=== PATIENT | female | born 1950 | race Caucasian/White ===

== ENCOUNTER 2016-09-08 06:27 | Day surgery (SDC) | payer OTHER ==
--- NOTE | 2016-09-04 09:09 | PREOPHP ---
DATE OF ADMISSION: 09/08/2016 HISTORY OF PRESENT ILLNESS: This 66-year-old patient is admitted for elective cataract extraction o f the left eye. The patient has had decreased vision for the past 4 years and 3 months ago underwen t cataract surgery of the right eye with good visual result. The patient denies prior history of ey e disease or injury. The patient does have a 10-year history of ubz-[id number]-[id number] diabetes christina itus. In addition, the patient is being treated for fibromyalgia, arthritis, and depression. CURRENT MEDICATIONS: Includes: 1. Cymbalta. 2. Metformin. 3. Nateglinide. 4. Alprazolam. 5. Benazepril. 6. Jardiance. 7. Pravastatin. 8. Omeprazole. 9. Aspirin (discontinued 1 week prior to surgery). 10. Bupropion. 11. Ventolin. 12. Spiriva. ALLERGIES: THE PATIENT IS ALLERGIC TO HUMULIN INSULIN. PHYSICAL EXAMINATION: The visual acuity with best correction is 20/40 in both eyes. Slit lamp exam ination reveals a posterior chamber intraocular lens in appropriate position in the right eye and a posterior subcapsular cataract in the left eye. Applanation tonometry is 20 mmHg. Examination of t he retina does not reveal the presence of any diabetic retinopathy. DIAGNOSIS: Cataract, left eye. PLAN: Cataract extraction with lens implant, left eye. The risks and alternatives to the surgery h ave been discussed with the patient as well as the hope for improvement of visual acuity leading to a greater ability to perform activities of daily living. The patient understands this and consents to the surgery. Dictated By: VINAY BADILLO/JITENDRA Conf#: [id number] DID#: [id number]
[2016-09-08] VITALS (8 sets, daily range): BP systolic 122–138; BP diastolic 60–77; PULSE 90–103; RESP 20–26; Ht 162.6 cm; Wt 124.0 kg
[~2016-09-08] VITALS: Ht 162.6 cm; Wt 124.0 kg
[~2016-09-08 06:27] MED LIST: ACAR25TA8 PO; ALBU18HF INHALATION; ALPR0.254 PO; ASPI81TA3 PO; BENA40TA41 PO; BUPR150T6 PO; DULO60CA6 PO; EMPA25TA PO; EXEN2VIA SQ; HYDR-902 PO; INSU100I31 SQ; METF500T4 PO; NATE120T PO; OMEP20CA16 PO; PRAV80TA27 PO; TIOT18CA INHALATION
[2016-09-08] MEDS ORDERED: DOCU250C58 PO (07:44)
[2016-09-08] MEDS ORDERED: CARBACHOL 0.01% 1.5 ML OPH INJ ONE (07:57)
[2016-09-08] MEDS ORDERED: CYCLOPENTOLATE/PHENYLEPH 2 ML OPH LEFT EYE SCH (08:00)
[2016-09-08] MEDS ORDERED: DICLOFENAC 0.1% 2.5 ML OPH OPER SCH (08:00)
[2016-09-08] MEDS ORDERED: TROPICAMIDE 1% 2 ML OPH OPER SCH (08:00)
[2016-09-08] MEDS ORDERED: CIPROFLOXACIN 0.3% 2.5 ML OPH OPER SCH (08:00)
--- NOTE | 2016-09-08 08:16 | HPN ---
Date/Time of Note Date/Time of Note DATE: 09/08/16 TIME: 08:16 Interval H&P Admission Note Pt. seen H&P reviewed: No system changes VINAY OLVERA MD Sep 08, 2016 08:16
[2016-09-08] MEDS ORDERED: LIDOCAINE 4% (MPF) 5 ML INJ ONE (09:07)
[2016-09-08] MEDS ORDERED: DEXAMETHASONE 4 MG/ML 1 ML INJ ONE (09:07)
[2016-09-08] MEDS ORDERED: HYALURONATE/CHONDROITIN 1ML OPH INJ ONE (09:07)
[2016-09-08] MEDS ORDERED: FENTAnyl 50 MCG/ML VIAL ONE (09:27)
[2016-09-08] MEDS ORDERED: CARBACHOL 0.01% 1.5 ML OPH INJ INJ ONE (09:45)
[2016-09-08] MEDS ORDERED: CEFAZOLIN 1 GM INJ INJ ONE (09:45)
[2016-09-08] MEDS ORDERED: MEPERIDINE 25 MG INJ IV PRN (10:00)
[2016-09-08] MEDS ORDERED: FENTAnyl 50 MCG/ML VIAL IV PRN ×2 (10:00)
[2016-09-08] MEDS ORDERED: METOCLOPRAMIDE 10 MG INJ IV PRN (10:00)
[2016-09-08] MEDS ORDERED: DIPHENHYDRAMINE 50 MG INJ IV PRN (10:00)
[2016-09-08] MEDS ORDERED: ONDANSETRON 4 MG INJ IV PRN (10:00)
[2016-09-08] MEDS ORDERED: PROPOFOL 20 ML ONE (10:32)
--- NOTE | 2016-09-08 11:31 | OPR ---
DATE OF OPERATION: 09/08/2016 PREOPERATIVE DIAGNOSIS: Cataract, left eye. POSTOPERATIVE DIAGNOSIS: Cataract, left eye. OPERATION PERFORMED: Cataract extraction with lens implant, left eye. SURGEON: Vinay Son MD ANESTHESIA: Ed Mcguire MD DESCRIPTION OF OPERATION: The patient was brought to the operating room and placed on the table wit h an IV in place and the patient attached to an electronic device monitor. Oxygen was given via face mask. After some intravenous sedation was administered, local anesthesia was given using Xylocaine 2% with epinephrine, mixed with Marcaine 0.5%. This was given in a lid block and retrobulbar injection. The patient was then prepped and draped in the usual sterile manner. A wire lid speculum was inserted between the lids of the left eye. A Superblade was used to enter th e anterior chamber at the corneoscleral limbus at the 10:30 o'clock position. A separate incision wa s made using a 3.0-mm keratome which entered the corneoscleral junction at the 12 o'clock position. Through this 3-mm opening, an irrigating cystitome was introduced into the anterior chamber. The jalyn mber was filled with Viscoat and an anterior capsulotomy was performed. Balanced salt solution was t hen used for hydrodissection of the lens. A phacoemulsification handpiece was then brought into the field and introduced into the anterior chamber. The lens nucleus was emulsified using a deep groove and cracking the nucleus into quadrants. Following this, each quadrant was aspirated and emulsified at the pupillary margin. Attention was then turned to remove lens cortical material using irrigation aspiration. During this period of time, the patient was snoring as a result of the intravenous sedation and there was asndy nuous head movement. While removing the superior portion of the lens cortical material, a break was noted in the posterior capsule and the anterior vitreous presented at the lips of the wound. A dangelo ited mechanical anterior vitrectomy was performed using the vitrectomy instrumentation. Following r emoval of all vitreous in the anterior chamber and the lips of the wound, it was noted that there wa s sufficient lens capsular material to support a posterior chamber lens implant and then additional DisCoVisc was then injected into the anterior chamber and then a 10.0 diopter posterior chamber intr aocular lens (Bausch and Lomb model LI61AO) was inserted into the posterior capsule placing the lens haptics anterior to the remaining lens capsule in the temporal and nasal quadrants. The lens cente red well and remained stable despite external pressure. Following this 10-0 nylon suture was placed across the wound. Miostat was instilled to constrict the pupil and prior to tying the suture, the DisCoVisc was removed from the chamber by means of irrigation aspiration. The suture was then tied, the ends were cut short, and the knot was buried. Then, 0.5 mL of Ancef and 0.5 mL of dexamethason e were then injected into the sub-Tenon space inferiorly. The speculum was removed. Ciprofloxacin drops placed on the surface of the eye and the eye was then patched. The patient left the operating room in satisfactory condition. Dictated By: VINAY BADILLO/JITENDRA Conf#: [id number] DID#: [id number]
== END 2016-09-08 11:46 | disposition home or self-care (01) ==
LOC: SDS 06:27
PROVIDERS: ATTEND Ophthalmology
DX: H26.9 Unspecified cataract (principal); E11.9 Type 2 diabetes mellitus without complications; I10 Essential (primary) hypertension; J44.9 Chronic obstructive pulmonary disease, unspecified; E66.01 Morbid (severe) obesity due to excess calories; Z68.42 Body mass index [BMI] 45.0-49.9, adult
CPT/HCPCS: 66984; 82962; J0690; J1100; J3010; V2632

== ENCOUNTER 2016-11-10 11:23 | Day surgery (SDC) | payer OTHER ==
[~2016-11-10] VITALS: Ht 162.6 cm; Wt 124.0 kg
[~2016-11-10 11:23] MED LIST changes: -ACAR25TA8 PO
[2016-11-10 12:23] VITALS: Ht 162.6 cm; Wt 124.0 kg
[2016-11-10] MEDS ORDERED: FENTAnyl 50 MCG/ML VIAL ONE (12:48)
[2016-11-10] MEDS ORDERED: PROPOFOL 20 ML ONE ×2 (12:48→13:09)
[2016-11-10 12:56] VITALS: BP 144/81; PULSE 92; RESP 18
[2016-11-10 14:05] VITALS: BP 119/68; PULSE 88; RESP 18
--- NOTE | 2016-11-10 14:21 | GILP ---
DATE OF PROCEDURE: 11/10/2016 NAME OF PROCEDURES: Colonoscopy and biopsy. SURGEON: Rio Orozco MD. PREOPERATIVE DIAGNOSES: 1. Change in the bowel habit. 2. History of colon polyps. POSTOPERATIVE DIAGNOSES 1. Colonoscopy all the way to the cecum. 2. Diverticulosis of the colon. 3. Small rectal polyp was removed using the biopsy forceps. 4. Internal hemorrhoids. INDICATION FOR THE PROCEDURE: Ms. Yue Werner is a 66-year-old female patient who noticed a change in the bowel habits. She had a history of colon polyps so the patient was scheduled for colonoscop y for further evaluation. The procedure and possible complications are well explained to the patient, she understood and conse nted to the procedure. DESCRIPTION OF PROCEDURE: Under the influence of anesthesia, the colonoscope was carefully introduc ed in the rectum, and under direct vision, it was advanced all the way to the cecum. FINDINGS: The patient had diverticulosis of the colon. She also had a small rectal polyp and it wa s removed using the biopsy forceps. She was noted to have internal hemorrhoids. She tolerated the procedure very well and there was no complication from the procedure. At the end of the procedures, she was awake with stable vital signs and she was discharged home to the care of her family. IMPRESSION: 1. Colonoscopy all the way to the cecum. 2. Diverticulosis of the colon. 3. Internal hemorrhoids. 4. Rectal polyp was removed using the biopsy forceps. PLAN: High fiber diet. Dictated By: RIO BREWSTER/JITENDRA Conf#: [id number] DID#: [id number]
== END 2016-11-10 15:19 | disposition home or self-care (01) ==
LOC: GIL 11:23
PROVIDERS: ATTEND Internal Medicine Gastroenterology
DX: R19.4 Change in bowel habit (principal); K62.1 Rectal polyp; K57.90 Diverticulosis of intestine, part unspecified, without perforation or abscess without bleeding; K64.8 Other hemorrhoids; E78.5 Hyperlipidemia, unspecified; E11.9 Type 2 diabetes mellitus without complications; J44.9 Chronic obstructive pulmonary disease, unspecified; I12.9 Hypertensive chronic kidney disease with stage 1 through stage 4 chronic kidney disease, or unspecified chronic kidney disease; N18.9 Chronic kidney disease, unspecified
CPT/HCPCS: 45380; 82962; 88305; J3010

== ENCOUNTER → 2017-05-20 | Outpatient (CLI) | payer OTHER ==
[~2017-05-20] MED LIST changes: -ALBU18HF INHALATION; -ALPR0.254 PO; +APRACLONIDINE 1% 0.1 ML OPH ONE; -HYDR-902 PO; +PROPARACAINE 0.5% 15 ML OPH ONE; -TIOT18CA INHALATION; +TROPICAMIDE 1% 3 ML OPH ONE
== END | disposition home or self-care (01) ==
LOC: RAD 09:57
PROVIDERS: ATTEND Ophthalmology
DX: H26.9 Unspecified cataract (principal)
CPT/HCPCS: 66821